=== PATIENT | female | born 1965 | race Caucasian/White ===

== ENCOUNTER 2017-10-19 10:30 | Inpatient (IN) ==
[2017-11-02] MEDS ORDERED: Metoprolol Tartrate 25 MG Tablet PO ONE (12:30)
[2017-11-02] MEDS ORDERED: Chlorhexidine Gluconate 2% 1 Pack (2 Cloths) TOPICAL ONE (12:30)
[2017-11-02] MEDS ORDERED: Sodium Chlor 0.9% Inj 500 ML IV.CONT ONE (12:30)
[2017-11-02] MEDS ORDERED: Estrogens Congugated Vag Cream w/app 30 GM Tube VAGINAL ONE (14:01)
[2017-11-02] MEDS ORDERED: Bupivacaine/Epinephrine Inj 0.25% 50 ML Vial ONE (14:39)
[2017-11-02] MEDS ORDERED: Sugammadex Inj 200 MG/2 ML Vial IV.PUSH ONE (14:56)
[2017-11-02] MEDS ORDERED: HYDROmorphone PF Inj 2 MG/ML Vial ONE (15:16)
[2017-11-02] MEDS ORDERED: Lidocaine PF 1% Inj 5 ML Syringe OTHER ONE (16:00)
[2017-11-02] MEDS ORDERED: Zolpidem Tartrate 5 MG Tablet PO PRN (19:05)
[2017-11-02] MEDS ORDERED: oxyCODONE/Acetaminophen 10/325 Tablet PO PRN (19:05)
[2017-11-02] MEDS ORDERED: Docusate Sodium 100 MG Capsule PO PRN (19:05)
[2017-11-02] MEDS ORDERED: Promethazine 25 MG Supp RECTAL PRN (19:05)
--- NOTE | 2017-11-02 19:25 | P.OP ---
- Preoperative Diagnosis (1) Ovarian mass, left (2) Dyspareunia due to medical condition in female (3) IUD complication (4) Metrorrhagia - Postoperative Diagnosis (1) Dyspareunia due to medical condition in female (2) IUD complication (3) Metrorrhagia Date of procedure: 11/08/17 Procedure: Laparoscopic exam Left salpingo-oophorectomy for large ovarian mass, laparotomy Total abdominal hysterectomy and right salpingo-oophorectomy Lysis of adhesions Removal of IUD. Anesthesia: GETA Surgeon: Olvin Chacko MD Estimated blood loss (mL): 250 Operation and Findings: Findings exam under anesthesia revealed a large central pelvic mass 16 weeks size, laparoscopic exam revealed a large ovarian mass completely obliterating the pelvis. Adhesions of the omentum to the anterior abdominal wall in the left lower quadrant. Right ovary with a 2 cm x 2 cm cyst looking remarkably like the larger cyst. Right tube was normal the uterus was normal size and shape possibly slightly irregular. Counts were correct Complications unable to complete this surgery to remove this ovarian mass laparoscopically because of the large size of the ovarian mass. Procedure in detail patient was taken to the operating theater and identified by name band and verbally. She was given a general anesthetic and prepped and draped in the usual sterile fashion for laparoscopic surgery with the yellowfin stirrups. Examination under anesthesia was carried out and there was a large central pelvic mass the CT scan stated it was 12 cm but we wanted to try to see if we can get this out using the laparoscope. Speculum was placed into the vagina the anterior lip of the cervix was grasped with a single-tooth tenaculum. The IUD was removed and a Hulka clamp was placed and the speculum was removed attention was turned to the umbilical area about 4 fingerbreadths above the umbilicus. We made a small incision and using a 5 mm trocar we entered the abdomen and created a pneumoperitoneum. The ovarian mass looks slightly suspicious and completely obliterated the pelvis I was hoping that we could remove this through the vagina without much difficulty but this seemed impossible at this time. We repositioned the yellowfin stirrups with great care to avoid injury and made a Pfannenstiel incision. Incision was taken down to the fascia the fascia was taken off the rectus muscle by blunt and sharp dissection. Peritoneum was entered under direct vision without difficulty and the incision extended with care to avoid the urinary bladder the larger ovary was then removed in toto we clamped across the infundibulopelvic ligament and remove the ovary intact without rupture. This was sent for frozen section at this point the bowels were packed after BISI from the omentum to the anterior wall were taken down. We used a self-retaining O'Jagdish-O'Joe retractor. The right ovary had a 2 cm cyst at this time and when I inspected it it ruptured in my hand. We removed this cyst and cauterized at 03 and awaited the frozen section results. The round ligaments were taken bilaterally and a bladder flap was created the broad ligaments were taken down with Neelam clamps and 0 Vicryl pop-off until the level of the internal os cervical spear 1C uterine vessels were skeletonized we took the uterine vessels with James clamps and doubly tied the uterus blanched nicely we spent some time it this time of pushing down the bladder and creating a nice bladder flap in the usual fashion the cardinal ligament was then taken down staying very close to the cervix with Jagjit clamps and 0 Vicryl pop-off once the vagina was obtained it was incised sharply and using the Geri scissors the specimen was removed. Miochol angle sutures were placed laterally and the vaginal cuff was closed with 0 Vicryl in a [id number] fashion with good hemostasis. The frozen section came back as a benign cyst adenoma. At this point we contemplated removing that right ovary and the small cysts looked very similar to the larger one felt it was best to remove we isolated the infundibulopelvic ligament eyes looked at the ureter and took this with 2 Neelam clamps of the stick tie and free tie. Hemostasis was excellent at this point we irrigated the pelvis with a large amount of fluid checked all surgical sites and hemostasis was excellent we removed the retractor and the lap sponges and reapproximated the rectus muscle with 0 Vicryl in a running fashion the fascia was repaired with a loop PDS suture #1 in a running fashion subcu was irrigated with fluid small bleeders were coagulated and reapproximated with 2-0 Vicryl. Skin was repaired with a 4-0 Monocryl in a subcuticular manner the wound was sterilely dressed she tolerated the procedure well and went to the recovery room in good condition.
[2017-11-02] MEDS ORDERED: fentaNYL Citrate Inj 100 MCG/2 ML Ampul ONE (19:32)
[2017-11-02] MEDS ORDERED: *morphine SULFATE 4 MG/ML PERIprocedure ONLY ONE (20:17)
[2017-11-02] MEDS: HYDROmorphone PF Inj 2 MG/ML Vial IV.PUSH PRN (22:42)
[2017-11-03] MEDS: HYDROmorphone PF Inj 2 MG/ML Vial IV.PUSH PRN ×3 (02:42→21:58)
[2017-11-03] MEDS: Ibuprofen 600 MG Tablet PO PRN ×3 (05:38→21:58)
[2017-11-03 05:52] LABS: Baso % (Auto) 0.1 % (0.0-2.0); Hemoglobin 11.7 gm/dL (11.6-15.3); Lymph # (Auto) 0.9 th/mm3 (1.0-4.8); Lymph % (Auto) 5.5 % (9.0-44.0); Mean Corpuscular HGB Conc 33.5 % (32.0-36.0); Mean Corpuscular Hemoglobin 32.3 pg (27.0-34.0); Mean Corpuscular Volume 96.4 fL (80.0-100.0); Mean Platelet Volume 7.7 fL (7.0-11.0); Mono # (Auto) 1.2 th/mm3 (0.0-0.9); Neut # (Auto) 13.3 th/mm3 (1.8-7.7); Neut % (Auto) 86.4 % (16.0-70.0); Platelet Count 238 th/mm3 (150-450); Red Blood Count 3.63 mil/mm3 (4.00-5.30); Red Cell Distribution Width 12.9 % (11.6-17.2); White Blood Count 15.4 th/mm3 (4.0-11.0)
[2017-11-03 06:19] LABS: Glomerular Filtration Rate Greater Than 89 mL/min (>89); Potassium 4.5 meq/L (3.5-5.1)
[2017-11-03] MEDS ORDERED: Estradiol 0.1 MG/24 HR Patch T-DERMAL ONE (08:27)
[2017-11-03] MEDS: Topiramate 25 MG Tablet PO SCH (08:57)
--- NOTE | 2017-11-03 14:08 | P.PNGI ---
Physical Exam Vital signs: Vital Signs 11/02/17 19:27 11/02/17 19:30 11/02/17 19:45 Temperature 98.4 F Pulse Rate 84 78 77 Respiratory Rate 19 19 20 Blood Pressure 165/82 H 165/82 H 169/86 H Pulse Oximetry 99 99 99 11/02/17 20:00 11/02/17 20:10 11/02/17 20:15 Temperature Pulse Rate 75 79 Respiratory Rate 20 20 Blood Pressure 169/88 H 162/88 H Pulse Oximetry 99 96 95 11/02/17 20:45 11/02/17 21:13 11/03/17 00:32 Temperature 98.6 F 98.1 F 98.7 F Pulse Rate 78 83 80 Respiratory Rate 18 18 18 Blood Pressure 165/87 H 157/91 H 155/85 H Pulse Oximetry 94 L 94 L 11/03/17 04:15 11/03/17 08:00 11/03/17 08:05 Temperature 99.4 F 98 F 98 F Pulse Rate 90 71 71 Respiratory Rate 18 20 20 Blood Pressure 114/69 133/78 133/78 Pulse Oximetry 91 L 96 11/03/17 12:00 Temperature 97.9 F Pulse Rate 72 Respiratory Rate 22 Blood Pressure 124/84 Pulse Oximetry 95 Intake & Output 11/02/17 11/03/17 11/03/17 18:59 06:59 18:59 Intake Total 1500 / 1500 1000 / 1000 Output Total 400 / 400 1050 / 1050 850 / 850 Balance 1100 / 1100 -50 / -50 -850 / -850 Weight 67.9 kg Intake: IV 1000 / 1000 LR 1000 mL Inj 1,000 ML @ 125 1000 / 1000 mls/hr IV.CONT .Q8H [facility] Rx#: [id number] Oral 0 / 0 Anesthesia Amount 1500 / 1500 Output: Urine 850 / 850 Estimated Blood Loss 250 / 250 Urine Amount (Catheter) 150 / 150 1050 / 1050 Indwelling Urethral Catheter 150 / 150 1050 / 1050 Other: Weight On Admission 67.9 kg - Urinary Catheter Management Indwelling Urethral Catheter Cath placed during this visit: yes Reason for continuing: Hourly intake/output Insertion date: 11/02/17 Insertion time: 16:10 Results - Labs CBC & Chem 7: 11/03/17 05:24 11/03/17 05:24 Laboratory Results - last 24 hr 11/03/17 11/03/17 05:24 05:24 WBC 15.4 H RBC 3.63 L Hgb 11.7 Hct 35.0 MCV 96.4 MCH 32.3 MCHC 33.5 RDW 12.9 Plt Count 238 MPV 7.7 Neut % (Auto) 86.4 H Lymph % (Auto) 5.5 L [place] % (Auto) 8.0 Eos % (Auto) 0.0 Baso % (Auto) 0.1 Neut # (Auto) 13.3 H Lymph # (Auto) 0.9 L [place] # (Auto) 1.2 H Eos # (Auto) 0.0 Baso # (Auto) 0.0 WBC Differential . Differential Comment Auto diff final Potassium 4.5 Creatinine 0.60 Estimated GFR Greater than 89
--- NOTE | 2017-11-03 16:02 | P.PNOB ---
Assessment and Plan - Postoperative Procedures Operation Date: 11/02/17 15:52 Actual Procedures Side Surgeon p TOTAL ABDOMINAL HYSTERECTOMY, BILATERAL SALPINGECTOMY, BILATERAL OOPHERECTOMY , REMOVE IUD Bilateral Olvin Chacko MD Postoperative status: doing well Postoperative plan: routine post-op care (PT DOING WELL WILL ORDER A HORMONE PATCH. PT TO SHOWER AND AMBULATE TODAY. PAIN WELL MANAGED WITH ORAL MEDICATION) - Time Spent With Patient Total time spent is greater than 50% in coordination of care (as documented) at patient's floor/unit and/or counseling patient: less than 15 minutes Subjective Subjective: patient reports feeling better, pain is well controlled, patient is tolerating oral intake Physical Exam Vital signs: Temp Pulse Resp BP Pulse Ox 97.9 F 72 22 124/84 95 11/03/17 12:00 11/03/17 12:00 11/03/17 12:00 11/03/17 12:00 11/03/17 12:00 Narrative: pod 1 - Constitutional no acute distress - Routine Respiratory Exam Present: CTA bilaterally - Routine Cardiovascular Exam Present: RRR, S1, S2 - Routine Abdominal Exam Present: soft, normoactive bowel sounds Comments: DRESSING CDI - Detailed Neurological Exam: Coma Scale Eye Opening: Spontaneous Verbal Response: Oriented - Urinary Catheter Management Indwelling Urethral Catheter Cath placed during this visit: yes Urethral indwelling: No Insertion date: 11/02/17 Insertion time: 16:10 Results - Labs CBC & Chem 7: 11/03/17 05:24 11/03/17 05:24 Labs: Laboratory Results - last 24 hr 11/03/17 11/03/17 05:24 05:24 WBC 15.4 H RBC 3.63 L Hgb 11.7 Hct 35.0 MCV 96.4 MCH 32.3 MCHC 33.5 RDW 12.9 Plt Count 238 MPV 7.7 Neut % (Auto) 86.4 H Lymph % (Auto) 5.5 L [place] % (Auto) 8.0 Eos % (Auto) 0.0 Baso % (Auto) 0.1 Neut # (Auto) 13.3 H Lymph # (Auto) 0.9 L [place] # (Auto) 1.2 H Eos # (Auto) 0.0 Baso # (Auto) 0.0 WBC Differential . Differential Comment Auto diff final Potassium 4.5 Creatinine 0.60 Estimated GFR Greater than 89
[2017-11-04] MEDS: Topiramate 25 MG Tablet PO SCH (09:47)
[2017-11-04 11:45] VITALS: BP 134/74; PULSE 68; RESP 18; TEMP 98.1; O2SAT 97
[2017-11-04] MEDS: Ibuprofen 600 MG Tablet PO PRN (11:52)
== END 2017-11-04 16:50 | disposition home or self-care (01) ==
LOC: HSDI 11-02 11:19 → H1EA 11-02 20:44
PROVIDERS: ADMIT Obstetrics & Gynecology; ATTEND Obstetrics & Gynecology